=== PATIENT | male | born 1980 | race Hispanic/Latino ===

== ENCOUNTER 2021-02-28 12:23 | Emergency (ER) | payer OTHER, SELFPAY ==
[2021-03-01 16:41] LABS: SARS-CoV-2 PCR by NAA DETECTED (NotDetected)
== END 2021-02-28 18:43 | disposition home or self-care (01) ==
LOC: CSHERS 12:23
DX: U07.1 COVID-19 (principal); I10 Essential (primary) hypertension; F17.210 Nicotine dependence, cigarettes, uncomplicated
CPT/HCPCS: 99283; U0003; U0005